=== PATIENT | female | born 1980 | race Caucasian/White ===

== ENCOUNTER 2022-06-10 12:09 | Outpatient (CLI) | payer OTHER, BC, SELFPAY ==
[2022-06-10 14:27] LABS: Glucose* 89 mg/dL (60-115)
== END 2022-06-10 12:10 | disposition home or self-care (01) ==
PROVIDERS: PCP Family Medicine; Visit Provider Obstetrics & Gynecology
DX: N32.81 Overactive bladder (principal); R68.89 Other general symptoms and signs
CPT/HCPCS: 82947; 84443; 87086

== ENCOUNTER 2022-07-29 10:25 | Outpatient (CLI) | payer OTHER, BC, SELFPAY ==
[2022-07-29 13:45] LABS: Basophils Absolute Auto 0.03 K/uL (0.00-0.30); Basophils Percent Auto 0.7 % (0.0-3.0); Eosinophils Absolute Auto 0.07 K/uL (0.00-0.50); Eosinophils Percent Auto 1.5 % (0.0-7.0); Hematocrit 40.5 % (33.0-51.0); Hemoglobin* 13.4 gm/dL (12.0-16.0); Immature Granulocytes Abs Auto 0.01 K/uL (0.00-0.30); Mean Corpuscular HGB Conc 33 gm/dL (32-36); Mean Corpuscular Hemoglobin 30 pg (26-34); Mean Corpuscular Volume 92 fL (80-100); Neutrophils Absolute Auto 2.47 K/uL (1.7-7.0); Neutrophils Percent Auto 53.6 % (42.0-72.0); Platelet Count* 150 K/uL (140-440); RDW Coefficient of Variation % 12.6 % (11.5-15.5); Red Blood Count 4.41 m/uL (4.00-5.20)
[2022-07-29 13:51] LABS: Slide Review Reflex No
[2022-07-29 14:43] LABS: Chloride* 106 mmol/L (96-114); Sodium* 140 mmol/L (135-149)
[2022-07-29 14:45] LABS: Creatinine* 0.8 mg/dL (0.5-1.5); Estimated Glomerular Filt Rate 94 ml/min
[2022-07-29 14:46] LABS: Blood Urea Nitrogen* 12 mg/dL (5-24); Calcium* 8.9 mg/dL (8.4-10.6); Carbon Dioxide* 26 mmol/L (20-32); Glucose* 95 mg/dL (60-115)
[2022-07-29 15:42] LABS: SARS PCR* Negative SARS-CoV-2 (Negative)
== END 2022-07-29 10:26 | disposition home or self-care (01) ==
PROVIDERS: PCP Family Medicine; Visit Provider Family Medicine
DX: Z01.818 Encounter for other preprocedural examination (principal); Z01.811 Encounter for preprocedural respiratory examination
CPT/HCPCS: 80048; 85025; 87635

== ENCOUNTER 2022-07-30 06:03 | Day surgery (SDC) | payer OTHER, BC, SELFPAY ==
[2022-07-30] VITALS (15 sets, daily range): BP systolic 94–136; BP diastolic 57–89; PULSE 42–66; RESP 14–16; TEMP 36.2–36.6; O2SAT 95–100; BMI 29.2
[2022-07-30] MEDS: LACTATED RINGERS 1000 ML 1,000 ML 100 ML IV (06:30)
[2022-07-30] MEDS: SODIUM CHLORIDE 0.9 % (FLUSH) 10 ML SYRINGE IVF (06:58)
--- NOTE | 2022-07-30 08:51 | W.ANESCHARGE ---
Anesthesia Charges Start Date/Time Anesthesia Start Date: 07/30/22 Anesthesia Start Time: 07:37 Stop Date/Time Anesthesia Stop Date: 07/30/22 Anesthesia Stop Time: 08:50 Summary Emergency: No
--- NOTE | 2022-07-30 09:00 | P.GYNPRC_ITS ---
Procedure Note Date Seen: 07/30/22 Procedure Details: PREOPERATIVE DIAGNOSIS: Redundant perineal skin after rectocele repair POSTOPERATIVE DIAGNOSIS: Perineal body defect PROCEDURE: Perineoplasty SURGEON: Taina Mcclain MD CLINICAL EXERCISE SPECIALIST: Leslee Edwards MD ANESTHESIA: Spinal, propofol IV FLUIDS: 1000 mL crystalloid EBL: 10 mL FINDINGS: On exam under anesthesia, there was redundant perineal skin overlying a defect in the perineal body. COMPLICATIONS: None PROCEDURE IN DETAIL: Patient was taken to the operating with IV running. She received cefazolin in preoperative prophylaxis. Spinal anesthesia was administered. She was prepped and draped in the usual sterile fashion in dorsal lithotomy position. Exam under anesthesia revealed the above-noted findings. The remnants of the hymeneal ring were grasped with Allis clamps. The elongated, redundant perineal skin was also grasped with Allis clamps. A trapezoidal section of perineal skin and epithelium of the posterior vaginal introitus was excised with the scalpel and Metzenbaum scissors, measuring approximately 3 cm in width and length. Bovie was used for oozing vessels along the perineal body. The underlying perineal body was reapproximated with interrupted sutures of 2 0 Vicryl. The hymeneal ring was reapproximated with 2- 0 Vicryl in a running fashion. The perineal skin was reapproximated 4-0 Vicryl in a subcuticular fashion. Patient tolerated procedure well and was taken to recovery area in stable condition.
[2022-07-30] MEDS: fentaNYL 100 MCG/2 ML inj 50 MCG IVP ×2 (09:05→09:39)
--- NOTE | 2022-07-30 09:08 | W.ANESCHARGE ---
Anesthesia Charges Start Date/Time Anesthesia Start Date: 07/30/22 Anesthesia Start Time: 07:37 Stop Date/Time Anesthesia Stop Date: 07/30/22 Anesthesia Stop Time: 08:50 Summary Emergency: No
[2022-07-30] MEDS: hydrOXYzine pamoate 25 MG CAPSULE PO (09:58)
[2022-07-30] MEDS: HYDROCODONE/ACETAMIN 7.5-325 TABLET 1 TAB PO (09:59)
== END 2022-07-30 10:35 | disposition home or self-care (01) ==
PROVIDERS: PCP Family Medicine; Visit Provider Obstetrics & Gynecology
PROC: (CPT 56620; principal; 2022-07-30 07:30)
DX: N90.69 Other specified hypertrophy of vulva (principal); L90.5 Scar conditions and fibrosis of skin
CPT/HCPCS: 56810; 81025; 940; A9270; J1100; J1170; J2250; J2405; J2704; J3010; J7120